=== PATIENT | male | born 1985 | race Caucasian/White ===

== ENCOUNTER 2017-10-11 21:18 | Emergency (ER) | payer SELFPAY ==
[~2017-10-11] VITALS: Ht 177.8 cm; Wt 78.1 kg
[2017-10-11 21:21] VITALS: BP 158/92
--- NOTE | 2017-10-11 21:30 | NUR ---
TO LOBBY, VIA W/C, VSS, A/W FOR BED, CHRISTIANO NOTED
--- NOTE | 2017-10-12 00:55 | NUR ---
PT TAKEN TO [facility]
--- NOTE | 2017-10-12 01:03 | NUR ---
32/M c/o dizziness, headache s/p hittting his head with a hammer 3 weeks ago. Pt states he was nailing a nail into wall and the hammer hit him in the face. Patient denies loss of conciousness and c/o dizziness, blurry ONLY when he walks. AOX4, clear speech. VSS. Pt was w/c into overflow by his friend and patient states he is able to walk but will get dizzy. VSS. No distress noted. Denies medical hx.
[2017-10-12 01:16] VITALS: BP 140/77
--- NOTE | 2017-10-12 01:16 | NUR ---
Patient discharged with v/s stable. Written and verbal after care instructions given and explained. Patient alert, oriented and verbalized understanding of instructions. Ambulatory with steady gait. All questions addressed prior to discharge. ID band removed. Patient advised to follow up with PMD. Rx of Meclizine 25mg given. Patient educated on indication of medication including possible reaction and side effects. Opportunity to ask questions provided and answered.
== END 2017-10-12 01:16 | disposition home or self-care (01) ==
LOC: MED 21:18
DX: R42 Dizziness and giddiness (principal); R03.0 Elevated blood-pressure reading, without diagnosis of hypertension
CPT/HCPCS: 70450; 73140; 99284